=== PATIENT | female | born 1975 | race Caucasian/White ===

== ENCOUNTER → 2017-12-02 11:13 | Outpatient (CLI) | payer OTHER, SELFPAY ==
[2017-12-02 12:47] LABS: TSH w/ Reflex to FT4 2.75 uIU/mL (0.47-4.68)
== END ==
PROVIDERS: PCP Family Medicine; Visit Provider Family Medicine
DX: E03.9 Hypothyroidism, unspecified (principal)
CPT/HCPCS: 36415; 84443

== ENCOUNTER → 2018-10-21 13:29 | Outpatient (CLI) | payer OTHER, SELFPAY ==
--- NOTE | 2018-10-21 13:32 | DI.RAD.S_ITS ---
PROCEDURE: XR CHEST 2V INDICATIONS: cough TECHNIQUE: 2 views of the chest were acquired. COMPARISON: None. FINDINGS: Surgical changes and devices: None. Lungs and pleura: Mild streaky bibasilar opacities likely representing atelectasis. No focal consolidation. No pleural effusions or pneumothorax. Mediastinum: Mediastinal contours are normal. Heart size is normal. Bones and chest wall: No suspicious bony abnormalities. Soft tissues appear unremarkable. IMPRESSION: Mild streaky bibasilar opacities greater on the left without focal consolidation. These are favored to represent atelectasis. Early airspace disease not excluded if clinically appropriate. Dictated by: Deondre Baig M.D. on 10/21/2018 at 13:01 Approved by: Deondre Baig M.D. on 10/21/2018 at 13:02
== END ==
PROVIDERS: PCP Student in an Organized Health Care Education/Training Program; Visit Provider Physician Assistant
DX: R05 Cough (principal)
CPT/HCPCS: 71046

== ENCOUNTER → 2019-02-07 12:12 | Outpatient (CLI) | payer OTHER, SELFPAY ==
[2019-02-07 15:05] LABS: TSH w/ Reflex to FT4 1.45 uIU/mL (0.47-4.68)
== END ==
PROVIDERS: PCP Student in an Organized Health Care Education/Training Program; Visit Provider Student in an Organized Health Care Education/Training Program
DX: E03.9 Hypothyroidism, unspecified (principal)
CPT/HCPCS: 36415; 84443

== ENCOUNTER → 2020-05-07 14:45 | Outpatient (CLI) | payer OTHER, SELFPAY ==
[2020-05-07] MEDS: COVID-19 VACC #1, MRNA(MOD) 100 MCG/0.5 ML VIAL IM (14:55)
== END ==
PROVIDERS: PCP Student in an Organized Health Care Education/Training Program; Visit Provider Internal Medicine
DX: Z23 Encounter for immunization (principal)
CPT/HCPCS: 0011A; 91301

== ENCOUNTER → 2020-06-04 10:47 | Outpatient (CLI) | payer OTHER, SELFPAY ==
[2020-06-04] MEDS: COVID-19 VACC #2, MRNA(MOD) 100 MCG/0.5 ML VIAL IM (10:51)
== END ==
PROVIDERS: PCP Student in an Organized Health Care Education/Training Program; Visit Provider Internal Medicine
DX: Z23 Encounter for immunization (principal)
CPT/HCPCS: 0012A; 91301

== ENCOUNTER → 2020-06-04 13:13 | Outpatient (ROUT) | payer OTHER, SELFPAY ==
[2020-06-04 14:16] LABS: COVID19 -Nasal RAPID Negative (Negative)
== END ==
PROVIDERS: PCP Student in an Organized Health Care Education/Training Program; Visit Provider Family Medicine
DX: Z20.822 Contact with and (suspected) exposure to COVID-19 (principal)
CPT/HCPCS: 87635

== ENCOUNTER → 2020-07-13 19:36 | Outpatient (ROUT) | payer OTHER, SELFPAY ==
[2020-07-13 20:28] LABS: Thyroid Stimulating Hormone 3.77 uIU/mL (0.47-4.68)
== END ==
PROVIDERS: PCP Student in an Organized Health Care Education/Training Program; Visit Provider Student in an Organized Health Care Education/Training Program
DX: E03.9 Hypothyroidism, unspecified (principal)
CPT/HCPCS: 84443

== ENCOUNTER 2023-05-16 10:25 | Day surgery (SDC) | payer OTHER, SELFPAY ==
[2023-05-16] MEDS: LACTATED RINGERS 1,000 ML 150 ML IV (10:59)
[2023-05-16 11:05] VITALS: BP 136/89; PULSE 92; RESP 16; TEMP 37.2; O2SAT 98
--- NOTE | 2023-05-16 11:44 | PM.HP.1 ---
History of Present Illness History of Present Illness Date Patient Seen: 05/16/23 Time Patient Seen: 11:44 Chief complaint: Colonoscopy Narrative: 47-year-old woman here for screening colonoscopy. No previous colonoscopy. Her grandfather had colon cancer past in his 50s. No abdominal concerns today. [facility] Surgical History Status post loop electrosurgical excision procedure (LEEP) of cervix Family History Father Age: 75 Melanoma Hypertension Hyperlipidemia TIA (transient ischemic attack) Overweight Grandfather Colon cancer Grandfather Lung cancer Grandmother Parkinsons disease Sister Age: 47 Seizure disorder Social History Smoking Status: Never smoker Meds Home Medications and Allergies Home Medications Medication Instructions Recorded Confirmed Type levothyroxine 175 mcg tablet 175 mcg PO QAM #30 tabs 05/16/18 05/16/23 Rx Allergies Allergy/AdvReac Type Severity Reaction Status Date / Time No Known Drug Allergies Allergy Verified 05/16/23 10:59 Exam Vital Signs (past 8 hours): - 05/16/23 11:05 Temperature 99 F Pulse Rate 92 H Respiratory Rate 16 Blood Pressure 136/89 Pulse Oximetry 98 Oxygen Delivery Method Room Air Oxygen Delivery Method Room Air Narrative Exam Narrative: General adult woman alert oriented no acute distress Chest nonlabored respiration Extremities warm well perfused Assessment & Plan Assessment & Plan narrative: The patient requires colorectal screening and colonoscopy is recommended. Technical details were discussed. Risks, benefits, alternatives explained. Risks including but not limited to myocardial infarction, aspiration, bleeding, pain, missed lesion, incomplete examination, need for further radiographic studies, colonic perforation, and need for major abdominal surgery were discussed. All questions were answered to their satisfaction, and they are in agreement with this plan.
[2023-05-16 12:17] VITALS: BP 149/88; PULSE 72; RESP 18; TEMP 36.9; O2SAT 97
--- NOTE | 2023-05-16 12:19 | P.OP.COLON_ITS ---
Operative Date/Time/Diagnoses Date of procedure: 05/16/23 Time of procedure: 12:19 Pre-op diagnosis: Colorectal screening Procedure & Clinicians Study performed: Colonoscopy Same procedure as scheduled: Yes Indications: Colorectal screening Surgeon: Jose Hallman Procedure Notes Procedure in detail: The history and physical was performed/updated and the patient is ASA class is 2. The procedure was discussed in detail with the patient. Potential risks complications including infection, bleeding, missed diagnosis, perforation, need for surgery, and were explained. Their questions were answered and informed consent was obtained. Patient was brought to the procedure room and placed standard monitoring equipment. The patient's vital signs were monitored continuously throughout the entire procedure. Prior to starting time-out was performed. The patient was placed in the left lateral recumbent position. Procedural sedation was administered by anesthesia. Examination began with a thorough inspection of the perianal area there was no evidence of fissures, fistulae, external hemorrhoids or cutaneous malignancy. The colonoscopy scope was then placed into the anal canal and was advanced to the cecum, which was identified by the ileocecal valve , the appendiceal orifice and the confluence of the taenia. The scope was then slowly withdrawn examining colon thoroughly in all directions, irrigating it of any residual stool. The scope was retroflexed within the rectum The patient tolerated the procedure well. They will be discharged once criteria are met. The prep was of good/excellent quality. The withdrawl time was 6 minutes. FINDINGS * Unremarkable colonoscopy. Normal healthy colonic mucosa without masses, polyps, or inflammation. * Internal hemorrhoids Specimen(s): none sent Impression: Normal colonoscopy Post-procedure Recommendations: Colonoscopy in 10 years Disposition: same day surgery
[2023-05-16 12:22] VITALS: BP 133/83; PULSE 69; RESP 20; O2SAT 99
[2023-05-16 12:27] VITALS: BP 139/85; PULSE 72; RESP 19; O2SAT 99
[2023-05-16 12:32] VITALS: BP 148/84; PULSE 81; RESP 19; O2SAT 98
[2023-05-16 12:38] VITALS: BP 147/102; PULSE 77; RESP 12; TEMP 36.6; O2SAT 100
== END 2023-05-16 12:45 | disposition home or self-care (01) ==
PROVIDERS: PCP Student in an Organized Health Care Education/Training Program; Referring Provider Surgery; Visit Provider Surgery
PROC: 0DJD8ZZ Inspection of Lower Intestinal Tract, Via Natural or Artificial Opening Endoscopic (ICD-10-PCS; CPT 45378; principal; 2023-05-16 11:15)
DX: Z12.11 Encounter for screening for malignant neoplasm of colon (principal); K64.8 Other hemorrhoids
CPT/HCPCS: 45378; J2704

== ENCOUNTER → 2024-02-18 09:42 | Outpatient (CLI) | payer OTHER, SELFPAY | PROVIDERS: PCP Student in an Organized Health Care Education/Training Program; Visit Provider Registered Nurse | DX: J02.9 Acute pharyngitis, unspecified (principal) | CPT/HCPCS: 87070 ==

== ENCOUNTER → 2024-06-27 17:11 | Outpatient (CLI) | payer OTHER, SELFPAY ==
--- NOTE | 2024-06-27 17:13 | DI.MG.S_ITS ---
MM screening mammo BI: 06/27/2024. BI-RADS: 1 CLINICAL: 48-year old female for bilateral screening mammogram. Tyrer-Cuzick lifetime risk of 19.0%. Current reported family history of breast cancer: mother. PRIOR EXAMS: No prior examinations available. MAMMOGRAPHY TECHNIQUE: 2D and 3D (tomosynthesis) digital mammographic views obtained, with additional images as needed for full coverage. Current study was also evaluated with a Computer Aided Detection (CAD) system. DENSITY B. There are scattered areas of fibroglandular density. MAMMOGRAPHY FINDINGS Bilateral: No suspicious mass, asymmetry, microcalcification, or other abnormality seen. IMPRESSION: * No evidence of malignancy. RECOMMENDATIONS Bilateral * Annual screening mammography. OVERALL ASSESSMENT CATEGORY BI-RADS-1: Negative. The [employer] recommends annual screening mammography beginning at age 40 for women with average risk of breast cancer. ELECTRONICALLY SIGNED: Deondre Baig M.D. on 06/28/2024 at 07:41:53 AM PT Interpreting Station ID: [id number]
== END ==
PROVIDERS: PCP Student in an Organized Health Care Education/Training Program; Referring Provider Student in an Organized Health Care Education/Training Program; Visit Provider Student in an Organized Health Care Education/Training Program
DX: Z12.31 Encounter for screening mammogram for malignant neoplasm of breast (principal); Z80.3 Family history of malignant neoplasm of breast
CPT/HCPCS: 77063; 77067